=== PATIENT | female | born 1995 | race Caucasian/White ===

== ENCOUNTER → 2017-04-12 | Outpatient (CLI) | payer OTHER ==
--- NOTE | 2017-04-12 10:30 | Diagnostic Imaging Report ---
INDICATION: Steven's, thyroid enlargement. TECHNIQUE: Grayscale sonographic images of the thyroid gland. CORRELATION STUDY: None FINDINGS: RIGHT LOBE: Within normal limits of size at 3.8 x 1.4 x 1.0 cm. LEFT LOBE: Within normal limits of size at 3.7 x 1.1 x 1.5 cm. There is fairly heterogeneous echotexture throughout both lobes of the thyroid gland. Definitive solid or cystic mass lesion, however, is not demonstrated. No significant hyperemia suggested. IMPRESSION: Thyroid gland currently within normal limits in size. There is fairly heterogeneous echotexture present. While this is nonspecific could be reflective of history of underlying thyroiditis. No significant hyperemia or definitive mass lesion at this time. Dictated by: Dictated on workstation # [id number]
== END ==
LOC: RAD 09:05
PROVIDERS: ATTEND Internal Medicine
DX: E06.3 Autoimmune thyroiditis (principal)
CPT/HCPCS: 76536